=== PATIENT | male | born 1960 | race Caucasian/White ===

== ENCOUNTER 2017-08-01 01:30 | Emergency (ER) | payer BC, OTHER, SELFPAY ==
[~2017-08-01] VITALS: Ht 172.7 cm; Wt 71.3 kg
[2017-08-01 01:32] VITALS: BP 150/84
[2017-08-01] MEDS ORDERED: HYDROcodone/APAP 5/325 TABLET PO STA (01:53)
[2017-08-01] MEDS ORDERED: OXYMETAZOLINE NASAL SPRAY 0.05%, 15ML NAS ONE (02:00)
[2017-08-01] MEDS ORDERED: IBUPROFEN 800 MG TABLET PO ONE (02:00)
[2017-08-01] MEDS ORDERED: OXYMETAZOLINE NASAL SPRAY 0.05%, 15ML ONE (02:25)
[2017-08-01] MEDS ORDERED: IBUPROFEN 800 MG TABLET ONE (02:25)
[2017-08-01] MEDS ORDERED: HYDROcodone/APAP 5/325 TABLET ONE ×2 (02:26→02:30)
== END 2017-08-01 02:49 | disposition home or self-care (01) ==
LOC: ED 02:43
DX: H92.01 Otalgia, right ear (principal); J02.8 Acute pharyngitis due to other specified organisms; B97.89 Other viral agents as the cause of diseases classified elsewhere; F17.200 Nicotine dependence, unspecified, uncomplicated
CPT/HCPCS: 87081; 87880; 99284

== ENCOUNTER 2018-12-02 10:52 | Outpatient (CLI) | payer BC | END 2018-12-02 23:59 | disposition home or self-care (01) | LOC: CARD 10:52 | PROVIDERS: ATTEND Internal Medicine Gastroenterology | DX: I47.1 Supraventricular tachycardia (principal); I47.2 Ventricular tachycardia; R55 Syncope and collapse | CPT/HCPCS: 93225; 93226 ==